=== PATIENT | female | born 1995 | race African-American/Black ===

== ENCOUNTER 2017-04-09 20:32 | Emergency (ER) | payer OTHER ==
[~2017-04-09] VITALS: Ht 170.2 cm; Wt 86.0 kg
[2017-04-09 20:35] VITALS: Ht 170.2 cm; Wt 86.0 kg
[2017-04-09] MEDS ORDERED: BCPILLS PO (21:13)
--- NOTE | 2017-04-09 21:37 | EMERGENCY ROOM VISIT NOTE ---
ED Visit Note First contact with patient: 20:44 Resident Physician Supervision Note: I was present with Dr. Fox during the history and exam. I discussed the case with the resident and agree with the findings and plan as documented in the note. Documented By: Ranulfo Cuellar
[2017-04-09] MEDS ORDERED: AMOX500C3 PO (22:33)
[2017-04-09] MEDS ORDERED: AMOXICILLIN 250 MG CAP PO STA (22:56)
[2017-04-09 23:03] VITALS: BP 119/66; PULSE 120; TEMP 39.5; O2SAT 97
[2017-04-09] MEDS ORDERED: ACETAMINOPHEN 500 MG TAB PO ONE (23:07)
--- NOTE | 2017-04-09 23:28 | EMERGENCY ROOM VISIT NOTE ---
History First contact with patient: 20:44 Chief Complaint: ILLNESS Stated Complaint: THROAT SWELLING, COUGH, FATIGUE, WEAKNESS, FEVER History of Present Illness The patient is a 21 year old female who presents to the Emergency Room with complaints of pharyngitis since Saturday. On Saturday morning she awoke with a sore throat and thought it was just because she had been partying over the weekend after graduating. She has had a dry cough since Saturday as well, coughing up a minor amount of clear mucous. She had been weak, no energy, no appetite, sore throat, and can see white spots in the back of her throat. She has also had hot and cold flashes and thinks had a fever at some point. She has also been somewhat congested with a headache. She took Sudafed, ibuprofen, and Benadryl and that seemed to help a little bit, but she still had throat pain. Did not go to urgent care because insurance doesn't cover it Denies any nausea, vomiting, changes in vision, neck stiffness, palpitations, ear pain, diarrhea, constipation, shortness of breath, burning on urination Review of Systems See HPI for pertinent positives and negatives. A total of ten systems were reviewed and were otherwise negative. Social History Smoking Status: Never Smoker Smokeless Tobacco Use: No Alcohol Use: heavy (Saturday and Saturday did heavy drinking after ) Drug Use: none Occupation Status: [employer] student Current/Historical Medications Scheduled Amoxicillin (Amoxil), 500 MG PO TID Control Pills ( Control Pills), 1 TAB PO DAILY Allergies Coded Allergies: No Known Allergies (Unverified , 04/09/17) Physical Exam Vital Signs Date Time Temp Pulse Resp B/P Pulse Ox O2 Delivery O2 Flow Rate FiO2 04/09/17 23:03 39.5 120 20 119/66 97 Room Air 04/09/17 20:35 37.6 103 20 145/82 97 Room Air Physical Exam GENERAL: Awake, alert, well-appearing, in no distress HENT: Normocephalic, atraumatic. Pharynx is erythematous with bilaterally enlarged tonsils. Some petechia are visible on the tonsils as well EYES: Normal conjunctiva. Sclera non-icteric. NECK: Supple. No nuchal rigidity. Trachea midline RESPIRATORY: Clear to auscultation. CARDIAC: Regular rate, normal rhythm. Extremities warm and well perfused. Pulses equal. ABDOMEN: Soft, non-distended. No tenderness to palpation. No rebound or guarding. No masses. RECTAL: Deferred. MUSCULOSKELETAL: Chest examination reveals no tenderness. The back is symmetrical on inspection without obvious abnormality. There is no CVA tenderness to palpation. No joint edema. LOWER EXTREMITIES: Calves are equal size bilaterally and non-tender. No edema. No discoloration. NEURO: Normal sensorium. No sensory or motor deficits noted. SKIN: No rash or jaundice noted. Medical Decision & Procedures Medications Administered Medications (Trade) Dose Ordered Sig/Justina Route Start Time Stop Time Status Last Admin Dose Admin Amoxicillin (Amoxil Cap) 500 mg ONE STAT PO 04/09/17 22:56 04/09/17 22:57 DC 04/09/17 23:07 500 MG Acetaminophen (Tylenol Tab) 1,000 mg STK-MED ONCE PO 04/09/17 23:07 04/09/17 23:08 DC 04/09/17 23:09 1,000 MG Medical Decision Based on symptoms including sore throat and fatigue in addition to the recent fevers, the most likely diagnosis is bacterial pharyngitis. The patient was treated with Amoxicillin and Tylenol and discharged home on 10 day course of antibiotics with Tylenol for fever and pain as needed. Impression Primary Impression: Bacterial pharyngitis Departure Information Dispostion Home / Self-Care Condition GOOD Prescriptions Amoxicillin (AMOXIL) 500 Mg Cap 500 MG PO TID for 10 Days, #30 CAP Prov: Hunter Fox .MD 04/09/17 Referrals No Doctor, Assigned (PCP) Patient Instructions [facility] [place]
== END 2017-04-09 23:11 | disposition home or self-care (01) ==
LOC: C.EDB 20:35 → C.EDA 23:11
DX: J02.8 Acute pharyngitis due to other specified organisms (principal); Z79.3 Long term (current) use of hormonal contraceptives